=== PATIENT | female | born 1990 | race Caucasian/White ===

== ENCOUNTER 2023-10-22 09:50 | Outpatient (CLI) | payer OTHER ==
--- NOTE | 2023-10-22 10:30 | Sleep Patient Instructions ---
Sleep Center Visit Summary - Patient Visit Information Reason for Visit: Initial consult for evaluation of sleep disordered breathing and other sleep issues. - Patient Instructions Instructions Attached: Sleep Study Additional Instructions: You will be completing a sleep study, either an in-lab polysomnography (PSG) or home sleep study (HST). You will follow-up in the sleep care office after the sleep study is completed to hear the results and talk about therapy, if needed. You will be called by our office staff to schedule this appointment, but you may contact us with any questions. - Clinic Information Contact: [facility] [address] [place] [address] [email or web address] T: [phone]
--- NOTE | 2023-10-22 10:34 | SLEEP CARE CONSULTATION ---
Information from patient questionnaire entered by Sulema Burton. I have reviewed and concur with the information entered by Sulema Burton. This document represents the service I personally performed and the decisions made by me, Yoly Scanlon ARNP. History of Present Illness Service Date and Time: 10/22/2023 0950 Reason for Visit: New patient Chief Complaint: reports: Insomnia, Unrefreshed sleep, Snoring, Observed pauses in breathing, Frequent awakenings at night Date of Onset: 2YRS Usual bedtime: 5705-2314 Time it takes to fall asleep: 20-30MINS Snores at night: Yes Observed to quit breathing while asleep: Yes Sleeps alone due to snoring: No Number of times waking at night: 3-4 Reasons for waking at night: reports: Choking (occasionally), Snoring, Gasping for air, Bathroom, Other (NOISE AND UNKNOWN) Toss, Turn, or Twitch while sleeping: Yes Recalls having dreams: Yes (sometimes) Usually gets out of bed at: MON-FRI 0550; weekends 1000 Feels refreshed in the morning: No Morning headache: Yes (1 time a week; lasts for about an hour, no meds needed usually) Sleepy or fatigued during the day: Yes (no unintentional naps) Ever fallen asleep while driving: Yes (drowsy driving occasionally; no accidents) Takes day naps: No Dreams during day naps: No Prior sleep studies: No Additional HPI information: I had the pleasure of seeing THOMAS RAMON today regarding the possibility of her having a sleep disorder. Her current complaints are frequent night awakenings, insomnia, observed pauses in breathing, snoring and unrefreshed sleep. She says her primary has giving her many different medications to help her sleep due to her insomnia. She still has issues with waking up frequently and they decided to investigate if she is waking up due to sleep apnea. She is also seeing a therapist to help her deal with stress and anxiety which may help her sleep better. She has used sleep apps in the past that recorded snoring and pauses in breathing. She does not wake up feeling refreshed. She can go to sleep within 30 minutes but wakes up 3-4 times nightly. - Parasomnia Symptoms Ever been unable to move upon waking from sleep: No Walks in sleep: No Talks in sleep: Yes Ever acted out dreams in sleep: Yes (wakes up doing actions in dreams) Ever felt weak in the knees when startled or emotional: Yes (has not fallen to ground) Bothered by creepy, crawly, restless sensations in legs: No Problems with memory or concentration: Yes (both) Subjective Initial [place] Sleepiness Scale score: 12 (10/22/23) Past Medical History Past Medical History: reports: Anxiety, Depression, Attention deficit (ADD), Other (INSOMNIA) Social History The patient's occupation is a AM. Patient is and lives in . Have you smoked in the past 12 months: No Cigarettes per day (20/pack): 3 Years of smokin Quit date: 2022 Smoking Pack Years: 0.4 Alcohol use: Yes Alcohol amount and frequency: 1-2 GLASSES WEEKENDS Caffeine use: Yes Caffeine amount and frequency: 1 DAILY Family History Family history of sleep disordered breathing: No Allergies and Home Medications Known drug allergies: Yes ( LISTED ) Drug allergies reviewed: Yes Home medication list reviewed: Yes (as listed) Allergy and home medication list: Allergies bacitracin Allergy (Verified 10/22/23 09:55) Home Medications Buspirone HCl See Rx Instructions .ROUTE .COMPLEX 10/22/23 [History] Cetirizine [ZyrTEC] See Rx Instructions .ROUTE .COMPLEX 10/22/23 [History] Cholecalciferol (Vitamin D3) [Vitamin D3] See Rx Instructions .ROUTE .COMPLEX 10/22/23 [History] Dextroamphetamine/Amphetamine [Adderall Xr 30 mg Capsule] See Rx Instructions .ROUTE .COMPLEX 10/22/23 [History] Doxepin [SINEquan] See Rx Instructions .ROUTE .COMPLEX 10/22/23 [History] Multivitamin See Rx Instructions .ROUTE .COMPLEX 10/22/23 [History] Melatonin 5 mg nightly in last 2 weeks- OTC Review of Systems Weight gain over past 5 years: 50 Cardiovascular: denies: high blood pressure Gastrointestinal: denies: heartburn Neurological: denies: headaches Psychiatric: reports: Attention Deficit Hyperactivity, anxiety, depression Ear/Nose/Throat: reports: wisdom teeth removed. denies: tonsillectomy Endocrine: reports: too hot or cold Musculoskeletal: reports: joint pain Immunologic: reports: sneezing, rash, allergies to food or environment Physical Exam Vital signs obtained and entered by: SULEMA Pemberton MA Blood Pressure: 129/83 (LEFT ARM) Cuff size: regular Heart Rate: 89 O2 Saturation: 99 Height: 5 ft 6.25 in Weight: 220 lb Body Mass Index: 35.2 BMI Classification: Obese Neck circumference: 14.5 Mouth and throat: narrow oropharynx Soft palate: normal Hard palate: normal Uvula: normal Uvula visualization: 25% Mallampati Class III Tongue: enlarged in size with teeth espinoza on lateral edges Tonsils: small Neck: normal w/o lymphadenopathy or thyromegaly Heart: regular rate and rhythm Lungs: clear bilaterally Impression and Plan 1. Suspected Obstructive Sleep Apnea-Hypopnea Syndrome, as suggested by a history of irregular snoring, observed cessation of breath while asleep, gasping or choking in sleep, morning headache, frequent awakening during the night, unrefreshed sleep, cognitive impairment, and excessive daytime sleepiness. Narrow oropharynx and obesity are common predisposing factors for obstructive sleep apnea-hypopnea syndrome. I recommend proceeding to polysomnography to confirm the diagnosis and to assess severity. If the patient has significant sleep disordered breathing, a manual CPAP titration study will also be performed to find the optimal treatment pressure. I informed the patient of what the sleep studies involve and after some discussion, obtained agreement to proceed. The pathophysiology of obstructive sleep apnea-hypopnea syndrome was discussed with the patient and health risks of cardiovascular and cerebrovascular disease if not treated. Risks of drowsy driving discussed in detail and patient advised to avoid long distance driving and to clod puller at the first sign of drowsiness. Patient agreed to plan. * Schedule polysomnography. * Avoid long distance driving or driving when feeling sleepy. * Avoid alcohol, sedative and muscle relaxant around bedtime. * Attempt to lose weight. * Review instructions provided by trained office staff on how to prepare for the sleep study. * Return for follow-up after sleep study completed. Counseling Topics: Weight loss health impact Plan: PSG and follow up Visit Type: In Office Time Spent with Patient (minutes): 32 Provider Statement: I spent 100% of the Face to Face Visit with the patient with greater than 50% spent counseling the patient and coordination of care.
[2023-10-22 10:37] VITALS: BP 129/83; O2SAT 99
== END 2023-10-22 09:51 | disposition home or self-care (01) ==
LOC: SC 09:50
PROVIDERS: ATTEND Nurse Practitioner Family
DX: R06.83 Snoring (principal); R06.81 Apnea, not elsewhere classified; G47.8 Other sleep disorders; R51.9 Headache, unspecified; R41.89 Other symptoms and signs involving cognitive functions and awareness; G47.10 Hypersomnia, unspecified; Z87.891 Personal history of nicotine dependence; E66.9 Obesity, unspecified; Z68.35 Body mass index [BMI] 35.0-35.9, adult
CPT/HCPCS: 99203; 99212

== ENCOUNTER 2023-10-29 20:44 | Outpatient (CLI) | payer OTHER ==
--- NOTE | 2023-10-30 17:53 | Ultrasound Report ---
PROCEDURE: Extremity Soft Tissue Limited INDICATIONS: SOFT TISSUE SWELLING/LUMP OVER THE OLECRANON TECHNIQUE: Real-time scanning was performed of the right elbow, with image documentation. COMPARISON: None. FINDINGS: Focused ultrasound examination in posterior right elbow at area of pain and swelling shows a heterogeneously hypoechoic area within subcutaneous soft tissue measures 2.1 x 1.6 x 0.8 cm in siz e and show no internal vascularity. Low level internal echoes seen. IMPRESSION: Finding is concerning for organizing soft tissue hematoma versus olecranon bursal fluid and bursitis. Clinical correlation is recommended. Reviewed by: Joseph Gibbs MD on 10/30/2023 5:52 PM PDT Approved by: Joseph Gibbs MD on 10/30/2023 5:52 PM PDT Station ID: [id number]
== END 2023-10-29 20:45 | disposition home or self-care (01) ==
LOC: DI 20:44
DX: R93.6 Abnormal findings on diagnostic imaging of limbs (principal); R93.89 Abnormal findings on diagnostic imaging of other specified body structures

== ENCOUNTER 2023-11-22 20:29 | Outpatient (CLI) | payer OTHER | END 2023-11-22 20:30 | disposition home or self-care (01) | LOC: SC 20:29 | PROVIDERS: ATTEND Nurse Practitioner Family | DX: R06.83 Snoring (principal); G47.8 Other sleep disorders; R06.81 Apnea, not elsewhere classified; R51.9 Headache, unspecified; G47.10 Hypersomnia, unspecified; R53.83 Other fatigue; F32.A Depression, unspecified; E66.9 Obesity, unspecified; Z68.35 Body mass index [BMI] 35.0-35.9, adult | CPT/HCPCS: 95810 ==

== ENCOUNTER 2023-12-31 15:10 | Outpatient (CLI) | payer OTHER ==
--- NOTE | 2023-12-31 14:54 | SLEEP CARE CONSULTATION ---
Information from patient questionnaire entered by Sulema Burton. I have reviewed and concur with the information entered by Sulema Burton. This document represents the service I personally performed and the decisions made by , Yoly Scanlon ARNP. History of Present Illness Service Date and Time: 12/31/2023 1440 Initial [place] Sleepiness Scale score: 12 (10/22/23) Current [place] Sleepiness Scale score: 14 (12/31/23) Additional HPI information: THOMAS RAMON returns via telephone visit for follow up and results of the recently performed polysomnography. The patient was informed of the following findings: No significant sleep disordered breathing with an average AHI of 2.4 and leon oxygen saturation of 83%. I explained the pathophysiology behind obstructive sleep apnea. Patient does not have sleep apnea and was advised how weight gain could increase the risk of developing sleep apnea in the future. I strongly encouraged the patient to lose weight. Patient has light snoring. Snoring can be reduced by weight loss. Weight loss is best achieved with diet consult. Patient instructed to contact PCP for referral. Snoring can also be treated with an oral appliance from a dentist. Advised to check insurance coverage. In addition, an ENT evaluation can be do to see if other treatment is indicated. Patient counseled not drink alcohol less than 4 hours before bedtime as it can increase snoring and apnea. Patient was cautioned about risks of drowsy driving until sleepiness symptoms resolve. Patient denies drowsy driving. Sleep Study - Results Type of Sleep Study: Polysomnography (COMPLETED 11/22/23) Prior sleep studies: No Polysomnography/Home Sleep Study results: IMPRESSION: The quality of the study is good. The patient had normal sleep efficiency. The sleep architecture was relatively normal as well considering the first night effect. Respiratory monitoring showed no significant sleep disordered breathing (AHI = 2.4) or hypoxia (leon oxygen saturation of 83% but only 1% to the total sleep time was spent with oxygen saturation below 90%). The patient did not sleep supine during this study. Snore was infrequent and light in intensity. There was no significant periodic leg movement of sleep. Cardiac rhythm was normal sinus rhythm without significant arrhythmia. No abnormal behavior (parasomnia) observed during the night. Allergies and Home Medications Known drug allergies: Yes (as listed) Drug allergies reviewed: Yes Home medication list reviewed: Yes (no changes) Allergy and home medication list: Allergies bacitracin Allergy (Verified 12/29/23 11:33) Review of Systems Review of systems same as previous: Yes (no changes) Physical Exam Vital signs obtained and entered by: SULEMA Pemberton MA Height: 5 ft 7 in (PER PT) Weight: 200 lb (PER PT) Body Mass Index: 31.3 BMI Classification: Obese Impression and Plan 1. Snoring but no significant sleep disordered breathing. However, she did not sleep supine on night of sleep study and supine sleep disordered breathing could not be ruled out. Patient advised that often weight loss will reduce snoring as well as apnea risk. An oral appliance can also be used for snoring. This would require a dental consultation. Patient cautioned not to use other online appliances as can cause bite issues. Patient is advised to check if insurance will cover. An ENT consult can also be helpful to determine if any other t reatment is an option. 2. Obesity, unspecified. Currently patients BMI is 31.3. Obesity increases the risk of apnea, CPAP pressure requirements and overall health risks especially cardiovascular and diabetes. Thus patient is advised to lose weight. * Attempt to lose weight * Avoid alcohol consumption near bedtime * The patient is cautioned about driving until sleepiness is completely resolved. * Return as needed for follow up. Counseling Topics: Weight loss health impact Follow up with Sleep Care in: as needed Visit Type: Telehealth Phone Video Type: Teri Patient Location: Home Location of Provider: Office Patient agrees and consents to this telehealth visit type: Yes Patient agrees to have their insurance billed: Yes Time Spent with Patient (minutes): 8 Provider Statement: I spent 100% of the Telehealth Phone Call with the patient with greater than 50% spent counseling the patient and coordination of care.
== END 2023-12-31 15:11 | disposition home or self-care (01) ==
LOC: SC 15:10
PROVIDERS: ATTEND Nurse Practitioner Family
DX: R06.83 Snoring (principal); E66.9 Obesity, unspecified; Z68.31 Body mass index [BMI] 31.0-31.9, adult
CPT/HCPCS: 99441